=== PATIENT | female | born 1965 | race African-American/Black ===

== ENCOUNTER 2019-01-01 20:16 | Emergency (ER) | payer BC, OTHER ==
[2019-01-01 20:27] VITALS: BP 149/83; PULSE 78; TEMP 98.2; BMI 28.1
--- NOTE | 2019-01-01 20:28 | PDOC ---
Rapid Medical Evaluation Chief Complaint: Chest Pain Time Seen by Provider: 01/01/19 20:24 Medical Evaluation: Allergies Allergy/AdvReac Type Severity Reaction Status Date / Time No Known Allergies Allergy Verified 11/29/13 20:31 01/01/19 20:25 I have performed a brief in-person evaluation of this patient. The patient presents with a chief complaint of: Chest pain , sent from Dr to be seen in ER for cardiac eval. burning to chest with radiation to left arm/ fingers Pertinent physical exam findings: well appearing I have ordered the following: EKG The patient will proceed to the ED for further evaluation. Discharge Disposition - Diagnosis Chest pain - Referrals - Patient Instructions - Post Discharge Activity
[2019-01-01 23:37] LABS: BASO % 0.5 % (0-2.0); EOS % 2.5 % (0-4.5); HEMATOCRIT 33.2 % (32.4-45.2); HEMOGLOBIN 10.8 GM/dL (10.7-15.3); MCH 28.6 pg (25.7-33.7); MCHC 32.7 g/dl (32.0-36.0); MEAN CELL VOLUME 87.6 fl (80-96); MEAN PLT VOLUME 7.3 fl (7.5-11.1); MONO % 7.4 % (3.8-10.2); NEUT % 60.6 % (42.8-82.8); PLATELET COUNT 205 K/MM3 (134-434); RBC 3.79 M/mm3 (3.60-5.2); RDW 16.2 % (11.6-15.6); WHITE BLOOD COUNT 5.9 K/mm3 (4.0-10.0)
--- NOTE | 2019-01-01 23:42 | PDOC ---
History of Present Illness - General Chief Complaint: Chest Pain Stated Complaint: sent by doctor Time Seen by Provider: 01/01/19 20:24 - History of Present Illness Initial Comments: Ricarda Krueger is a 53yo woman with a PMH of HTN who presents to the ED from her PMD's office with report of chest pain and left arm pain. She states that the pain has been occurring intermittently over the past month. She describes it as a dull, burning pain that is usually 6-7/10 in intensity. She is unsure how long the pain usually lasts. She has not noticed any particular alleviating or exacerbating factors, but she believes that it is due to stress as the pain "always occurs in the presence of one particular family member." She has not noticed that it occurs with exertion, change in position, deep breaths, arm movement. She denies any associated SOB, lightheadedness, nausea, or sweating. The chest pain and arm pain both occur intermittently, sometimes together and sometimes separately. She has not tried taking any pain medication at home, though she has been limiting the use of her left arm due to the pain. She went to see her PMD today and was sent to the ED for additional evaluation. Past History - Past Medical History Allergies/Adverse Reactions: Allergies Allergy/AdvReac Type Severity Reaction Status Date / Time No Known Allergies Allergy Verified 11/29/13 20:31 Home Medications: Ambulatory Orders Clonidine HCl 0 mg PO DAILY 11/29/13 Lisinopril [Prinivil -] 0 mg PO DAILY 11/29/13 COPD: No HTN: Yes - Immunization History Immunization Up to Date: Yes - Suicide/Smoking/Psychosocial Hx Smoking History: Never smoked Hx Alcohol Use: Yes (occasion) Substance Use Type: None Review of Systems - Review of Systems Comments:: General: No fevers, no chills, no weight or appetite change, no malaise HEENT: No changes in vision, no changes in hearing, no congestion, no sore throat CV: + chest pain, no palpitations, no LE edema Pulm: No SOB, no cough, no wheezing GI: No nausea or vomiting, no change in bowel habits, no melena : No frequency, no urgency, no dysuria Musc: No back pain, no joint swelling, no recent injury. +left arm pain Skin: No rash, no lesions, no erythema Endo: No excessive thirst, no heat/cold intolerance Heme: No unusual bruising or bleeding, no swollen glands Neuro: No syncope, no numbness/tingling, no focal weakness Vasc: No claudication Psych: No recent change in mood, no SI or HI *Physical Exam - Vital Signs Last Vital Signs Temp Pulse Resp BP Pulse Ox 98.2 F 78 18 149/83 99 01/01/19 20:24 01/01/19 20:24 01/01/19 20:24 01/01/19 20:24 01/01/19 20:24 - Physical Exam Comments: General: Comfortable, no acute distress HEENT: PERRL, EOMI, MMM, voice normal, normal neck ROM, no LAD Cards: RRR, no murmur appreciated. Left upper chest wall TTP Pulm: Comfortable on room air, clear to auscultation bilaterally Abd: Soft, nontender, nondistended Ext: Atraumatic. No LE edema. ROM intact. Strength 5/5 and equal bilaterally. Pain with palpation of LUE Vasc: Extremities WWP Skin: Normal color, no rashes or lesions Neuro: A&Ox3, CN grossly intact, normal speech, motor/sensory grossly intact and symmetric Psych: Mood appropriate to situation ED Treatment Course - LABORATORY CBC & Chemistry Diagram: 01/01/19 23:20 01/01/19 23:20 - RADIOLOGY Radiology Studies Ordered: Category Date Time Status CHEST PA & LAT [RAD] Stat Radiology 01/01/19 22:33 Ordered Medical Decision Making - Medical Decision Making 01/01/19 22:36 Ricarda Krueger is a 53yo woman with a PMH of HTN who presents to the ED from her PMD's office with report of intermittent, 6/10, non-radiating, dull burning left chest and left arm pain without associated symptoms. She is unable to identify any exacerbating or alleviating factors but does say that the pain is not exertional. It occurs in the arm and chest independently and together and does not appear to be related to movement or exertion. - Ddx includes ACS, muscle strain, costochondritis. More likely muscular as the pain in both the chest wall and arm is reproducible, the pain is non-exertional , and she has no associated symptoms - CBC, CMP, trop, EKG ordered in [facility] - CXR added 01/02/19 00:48 - Labs completed, unremarkable - EKG w/ NSR, HR 78, normal to slightly left axis, normal intervals. t-wave inversions in V1 seen on previous EKG's - CXR to be completed 01/02/19 01:40 - CXR without focal abnormalities appreciated - Discussed results w/ Ms Pati, pt feels that she is ready to go home. Discussed home care, follow up, and return precautions at length. She states understanding and agreement with the plan. Discussed with Dr Callahan. Candelaria Peralta PGY2 *DC/Admit/Observation/Transfer Diagnosis at time of Disposition: Chest wall pain - Discharge Dispostion Disposition: HOME Condition at time of disposition: Stable Decision to Admit order: No - Referrals Referrals: Isabelle Lombardo MD [Primary Care Provider] - Jun Arevalo MD [Staff Physician] - - Patient Instructions Printed Discharge Instructions: DI for Musculoskeletal Pain Additional Instructions: Discharge Instructions: You were seen in the emergency department for left chest and left arm pain. Your blood tests, xray, and EKG did not show any concerning findings. Your pain is most likely due to musculoskeletal inflammation or irritation. Home Care and Follow Up: - You may use over the counter medications as needed for pain at home. 650- 1000mg acetaminophen (Tylenol) or 600mg ibuprofen (Motrin or Advil) can be used every 6-8 hours. If needed for continued pain, these medications may be alternated every 3-4 hours. For example, if you take ibuprofen at 9am, you may take acetaminophen at noon, ibuprofen at 3pm, etc. - It is strongly recommended that you take ibuprofen with food to help prevent stomach irritation. If you are taking it for more than a day or two, you may consider taking an acid medication such as Pepcid or Xantac, available over the counter, to protect your stomach. This should be taken first thing in the morning 30-60 minutes before any food or medications. - You may buy a numbing patch that contains lidocaine (the patch is 4% lidocaine ) that can be placed over the areas of greatest pain. The lidocaine patch may be placed for 12 hours then removed for 12 hours. - Try using an ice pack for 20 minutes every hour or a heating pad for additional pain control. These should NOT be used over the lidocaine patch, but you may place them over the areas of pain while the patch is off. - Do not stop moving around. As much as you can tolerate, continue to do light exercise and stretching exercises. Increase your activity level as much as you can tolerate daily. - You have been referred to cardiology, Dr Jun Arevalo, if your pain does not resolve over the next few days. - Follow up with your primary doctor within the next week. - Seek immediate medical care if you have significant worsening of your symptoms , pain with exercise, pain along with sweating or nausea, difficulty breathing, or any other medical emergency. - Post Discharge Activity
--- NOTE | 2019-01-01 23:50 | PDOC ---
Documentation entered by Jimmy Romero SCRIBE, acting as scribe for Sherlyn Callahan MD. Sherlyn Callahan MD: This documentation has been prepared by the Nick gaston Daniel, SCRIBE, under my direction and personally reviewed by me in its entirety. I confirm that the documentation accurately reflects all work, treatment, procedures, and medical decision making performed by me. Attending Attestation - Resident Resident Name: Candelaria Peralta - ED Attending Attestation I have performed the following: I have examined & evaluated the patient, The case was reviewed & discussed with the resident, I agree w/resident's findings & plan, Exceptions are as noted - HPI HPI: 01/01/19 23:23 The patient is a 53 year old female with a past medical history of HTN here today for evaluation of chest and arm pain. The patient reports that she has had 1 month of dull, burning left sided chest pain that occurs in stressful situations. She also notes intermittent left arm pain that is independent of the chest pain but can occur at the same time. Patient denies headache, lightheadedness. Denies fever, chills. Denies shortness of breath. Denies nausea, vomiting, diarrhea, abdominal pain. Allergies: NKA Social history: Denies tobacco, illicit drug, and alcohol use. Surgical history: none PCP: Isabelle Lombardo Family history: HTN - Physicial Exam PE: 01/01/19 23:43 wnwd 53yo female with left sided chest pain and left arm pain for weeks head ncat neck supple,no bruits lungs cta b/l cvs [id number] abd nontender no flank tenderness skin warm and dry extremities no edema neuro axox3,ambulatory psych appropriate - Medical Decision Making 01/01/19 23:45 diff diag includes angina, atypical chest pain,musculoskeletal pain will get troponin ekg was nsr @78 bpm,LVH No significant change since her ekg from 11/30/13 01/02/19 01:38 ekg is nsr her cardiac enzyme is negative cxr napd pt will be discharged home to followup with her PCP
[2019-01-02 00:02] LABS: ALBUMIN 3.4 g/dl (3.4-5.0); ALK PHOS 68 U/L (45-117); ANION GAP 7 MMOL/L (8-16); BILIRUBIN,TOTAL 0.3 mg/dL (0.2-1); BLOOD UREA NITROGEN 19.9 mg/dL (7-18); CALCIUM 8.5 mg/dL (8.5-10.1); CHLORIDE 107 mmol/L (98-107); CO2 29 mmol/L (21-32); GLUCOSE,RANDOM 123 mg/dL (74-106); POTASSIUM 3.2 mmol/L (3.5-5.1); SGOT/AST 10 U/L (15-37); SGPT/ALT 19 U/L (13-61); SODIUM 143 mmol/L (136-145); TOT PROT 7.3 g/dl (6.4-8.2)
[2019-01-02] MEDS ORDERED: ACETAMINOPHEN 325 MG TABLET (FP) PO ONE (01:41)
[2019-01-02] MEDS ORDERED: ACETAMINOPHEN 325 MG TABLET (FP) ONE (02:18)
--- NOTE | 2019-01-02 14:45 | EKG ---
Test Reason : Blood Pressure : / mmHG Vent. Rate : 078 BPM Atrial Rate : 078 BPM P-R Int : 194 ms QRS Dur : 090 ms QT Int : 398 ms P-R-T Axes : 060 -13 020 degrees QTc Int : 453 ms NORMAL SINUS RHYTHM POSSIBLE LEFT ATRIAL ENLARGEMENT LEFT VENTRICULAR HYPERTROPHY CANNOT RULE OUT SEPTAL INFARCT , AGE UNDETERMINED ABNORMAL ECG WHEN COMPARED WITH ECG OF 30-NOV-2013 02:39, MINIMAL CRITERIA FOR SEPTAL INFARCT ARE NOW PRESENT Confirmed by MD HECTOR, MILAGROS ([id number]) on 01/02/2019 2:45:20 PM Referred By: Confirmed By:MILAGORS YOUNG MD
== END 2019-01-02 02:27 | disposition home or self-care (01) ==
LOC: JER 20:16
DX: R07.9 Chest pain, unspecified (principal)
CPT/HCPCS: 36415; 71046-TC-FY; 80053; 82550; 84484; 85025; 93005; 93010; 99281-25

== ENCOUNTER 2021-03-10 17:39 | Emergency (ER) | payer BC, OTHER ==
[2021-03-10 18:11] VITALS: TEMP 98; BMI 30.2
[2021-03-10 19:35] LABS: BASO % 1.1 % (0-2.0); EOS % 2.3 % (0-4.5); HEMATOCRIT 34.9 % (32.4-45.2); HEMOGLOBIN 11.7 GM/dL (10.7-15.3); LYMPH % 29.9 % (8-40); MCH 29.5 pg (25.7-33.7); MCHC 33.7 g/dl (32.0-36.0); MEAN CELL VOLUME 87.7 fl (80-96); MEAN PLT VOLUME 7.2 fl (7.5-11.1); NEUT % 58.7 % (42.8-82.8); PLATELET COUNT 226 10^3/uL (134-434); RBC 3.98 M/mm3 (3.60-5.2); RDW 15.2 % (11.6-15.6); WHITE BLOOD COUNT 5.3 K/mm3 (4.0-10.0)
[2021-03-10 20:00] LABS: CHLORIDE 107 mmol/L (98-107); SODIUM 141 mmol/L (136-145)
[2021-03-10 20:02] LABS: ALBUMIN 3.5 g/dl (3.4-5.0); ANION GAP 6 MMOL/L (8-16); BLOOD UREA NITROGEN 14.6 mg/dL (7-18); CALCIUM 8.9 mg/dL (8.5-10.1); CO2 28 mmol/L (21-32); GLUCOSE,RANDOM 85 mg/dL (74-106)
[2021-03-10 20:05] LABS: CREATININE 0.9 mg/dL (0.55-1.3); SGOT/AST 14 U/L (15-37); SGPT/ALT 17 U/L (13-61)
[2021-03-10 20:07] LABS: BILIRUBIN,TOTAL 0.4 mg/dL (0.2-1); TOT PROT 7.4 g/dl (6.4-8.2)
[2021-03-10 20:08] LABS: ALK PHOS 67 U/L (45-117)
[2021-03-10] MEDS ORDERED: KETOROLAC TROMETHAMINE 15 MG/ML VIAL IVPUSH ONE (22:10)
[2021-03-10] MEDS ORDERED: KETOROLAC TROMETHAMINE 15 MG/ML VIAL ONE (22:11)
[2021-03-10 22:59] VITALS: BP 138/76; PULSE 79
== END 2021-03-10 22:58 | disposition home or self-care (01) ==
LOC: JER 17:39
PROC: 3E0333Z Introduction of Anti-inflammatory into Peripheral Vein, Percutaneous Approach (ICD-10-PCS; principal; 2021-03-10)
DX: R07.89 Other chest pain (principal)
CPT/HCPCS: 36415; 71046-TC-FY; 80053; 82550; 84484; 85025; 93005; 93010; 99285-25